=== PATIENT | male | born 1940 | race Caucasian/White ===

== ENCOUNTER 2017-04-01 13:04 | Emergency (ER) | payer OTHER ==
[~2017-04-01 13:04] MED LIST: ALBUTEROL17 G1 IH; AMARYL2 MG PO; Ascorbic Acid,Ester- PO; BEE WITH C1 EACH PO; CARDIZEM CD,CA120 MG PO; CARDIZEM SR120 MG PO; DILAUDID2 MG PO; DUONEB3 ML IH; FEOSOL325 MG PO; FERROUS SULFAT325 MG PO; GLUCOPHAGE500 MG PO; HYDROCHLOROTHIA25 MG PO; LASIX40 MG PO; LEVOTHROID,SY0.05 MG PO; Levothroid,Synthroid PO; METFORMIN HCL500 MG PO; OMEPRAZOLE20 M1 PO; OXYCODONE-APAP1 EAC4 PO; PERCOCET 7.51 TABLET PO; PREDNISONE10 MG PO; Tylenol Regular Stre PO; VITAMIN C500 M5 PO; VYTORIN 10-201 EACH PO; ZESTRIL,PRINIVI10 M1 PO; ZESTRIL,PRINIVI10 MG PO; ZETIA10 MG PO; ZITHROMAX250 MG PO; ZITHROMAX500 MG PO; Zocor PO
[2017-04-01 13:08] VITALS: BP 82/56
[2017-04-01 14:39] LABS: HEMATOCRIT 41.1 % (38.0-50.0); MCH 30.9 PG (29.0-34.0); MCHC 32.8 G/DL (30.0-36.0); MCV 94.1 FL (86-99); MEAN PLAT.VOLUME 10.8 uM^3 (9.0-12.4); PLATELET COUNT 220 K/uL (156-360); RBC DIS.WIDTH-CV 14.4 % (11.8-14.6); RBC DIS.WIDTH-SD 49.7 % (39-53); RED BLOOD COUNT 4.37 M/uL (4.00-5.50); WHITE BLOOD COUNT 14.7 K/uL (4.1-10.2)
[2017-04-01 14:49] LABS: CHLORIDE 110 mEq/L (99-109); POTASSIUM 4.3 mEq/L (3.7-5.4); SODIUM 143 mEq/L (136-147)
[2017-04-01 14:51] LABS: GLUCOSE 78 mg/dL (70-99)
[2017-04-01 14:52] LABS: ANION GAP 12 MEQ/L (2-14)
[2017-04-01 14:55] LABS: GFR ESTIMATE (CALCULATED) 31 mL/min/
[2017-04-01] MEDS ORDERED: BACTRIM,SEPT1 TABLET PO (14:55)
[2017-04-01] MEDS ORDERED: KEFLEX500 MG PO (14:55)
[2017-04-01] MEDS ORDERED: PERCOCET 5/31 TABLET PO (14:55)
[2017-04-01 14:56] LABS: UREA NITROGEN (BUN) 32 mg/dL (9-23)
== END 2017-04-01 15:15 | disposition home or self-care (01) ==
LOC: EME 13:04
PROVIDERS: Physician Assistant
PROC: 0V95XZZ Drainage of Scrotum, External Approach (ICD-10-PCS; principal; 2017-04-01)
DX: N49.2 Inflammatory disorders of scrotum (principal); C14.0 Malignant neoplasm of pharynx, unspecified
CPT/HCPCS: 80048; 83605; 85027; 87040; 87077; 87186; 87801; 99281; 99284

== ENCOUNTER 2017-04-03 15:44 | Emergency (ER) | payer OTHER ==
[~2017-04-03] VITALS: Ht 172.7 cm; Wt 124.0 kg
[~2017-04-03 15:44] MED LIST changes: +BACTRIM,SEPT1 TABLET PO; +KEFLEX500 MG PO; +PERCOCET 5/31 TABLET PO
[2017-04-03 17:24] LABS: BASOPHIL COUNT 0.1 K/uL (0-0.1); EOSINOPHIL (%) 1.1 % (0-5); EOSINOPHIL COUNT 0.1 K/uL (0-0.3); IMMATURE GRANULOCYTE (%) 2.3 % (0.0-0.7); IMMATURE GRANULOCYTE COUNT 0.3 K/uL; INSTRUMENT ABS NEUTROPHIL CT 8.1 K/uL; LYMPHOCYTE COUNT 1.9 K/uL (1.0-2.8); MCH 30.1 PG (29.0-34.0); MCHC 32.2 G/DL (30.0-36.0); MCV 93.4 FL (86-99); MEAN PLAT.VOLUME 10.5 uM^3 (9.0-12.4); MONOCYTE (%) 9.5 % (3-12); MONOCYTE COUNT 1.1 K/uL (0-0.8); NEUTROPHIL (%) 70.4 % (45-76); NEUTROPHIL COUNT 8.1 K/uL (1.8-6.4); PLATELET COUNT 221 K/uL (156-360); RBC DIS.WIDTH-CV 14.4 % (11.8-14.6); RBC DIS.WIDTH-SD 49.1 % (39-53); RED BLOOD COUNT 4.39 M/uL (4.00-5.50); WHITE BLOOD COUNT 11.5 K/uL (4.1-10.2)
[2017-04-03 17:33] LABS: CHLORIDE 108 mEq/L (99-109); SODIUM 140 mEq/L (136-147)
[2017-04-03 17:35] LABS: GLUCOSE 63 mg/dL (70-99)
[2017-04-03 17:36] LABS: ANION GAP 13 MEQ/L (2-14)
[2017-04-03 17:37] LABS: TOTAL BILIRUBIN 0.3 mg/dL (0.0-1.0)
[2017-04-03 17:39] LABS: ALKALINE PHOSPHATASE 57 IU/L (3-129); GFR ESTIMATE (CALCULATED) 31 mL/min/
[2017-04-03 17:40] LABS: UREA NITROGEN (BUN) 29 mg/dL (9-23)
[2017-04-03 18:39] VITALS: BP 132/80
== END 2017-04-03 18:39 | disposition home or self-care (01) ==
LOC: EME 15:44
PROVIDERS: Emergency Medicine
DX: L73.9 Follicular disorder, unspecified (principal); N28.9 Disorder of kidney and ureter, unspecified; E11.9 Type 2 diabetes mellitus without complications; I10 Essential (primary) hypertension; K21.9 Gastro-esophageal reflux disease without esophagitis; J44.9 Chronic obstructive pulmonary disease, unspecified; Z93.0 Tracheostomy status; Z85.819 Personal history of malignant neoplasm of unspecified site of lip, oral cavity, and pharynx; Z79.84 Long term (current) use of oral hypoglycemic drugs; Z87.891 Personal history of nicotine dependence
CPT/HCPCS: 80053; 85025; 87040; 99281; 99283

== ENCOUNTER 2017-09-18 11:33 | Emergency (ER) | payer OTHER ==
[~2017-09-18] VITALS: Ht 180.3 cm; Wt 124.8 kg
[2017-09-18 12:32] LABS: BASOPHIL (%) 0.5 % (0-1); BASOPHIL COUNT 0.1 K/uL (0-0.1); EOSINOPHIL (%) 0.9 % (0-5); EOSINOPHIL COUNT 0.1 K/uL (0-0.3); HEMATOCRIT 39.8 % (38.0-50.0); HEMOGLOBIN 12.9 G/DL (12.5-16.6); IMMATURE GRANULOCYTE (%) 1.1 % (0.0-0.7); LYMPHOCYTE (%) 9.8 % (15-42); LYMPHOCYTE COUNT 1.3 K/uL (1.0-2.8); MCH 31.9 PG (29.0-34.0); MCHC 32.4 G/DL (30.0-36.0); MCV 98.3 FL (86-99); MONOCYTE (%) 9.2 % (3-12); MONOCYTE COUNT 1.2 K/uL (0-0.8); NEUTROPHIL (%) 78.5 % (45-76); NEUTROPHIL COUNT 10.1 K/uL (1.8-6.4); PLATELET COUNT 223 K/uL (156-360); RBC DIS.WIDTH-CV 13.7 % (11.8-14.6); RED BLOOD COUNT 4.05 M/uL (4.00-5.50); WHITE BLOOD COUNT 12.9 K/uL (4.1-10.2)
[2017-09-18 12:38] LABS: CARBON DIOXIDE (BICARBONATE) 26.3 MEQ/L (20-31)
[2017-09-18 12:44] LABS: CHLORIDE 107 mEq/L (99-109); POTASSIUM 4.7 mEq/L (3.7-5.4); SODIUM 140 mEq/L (136-147)
[2017-09-18 12:47] LABS: GLUCOSE 56 mg/dL (70-99); TOTAL PROTEIN 6.8 g/dL (6.4-8.3)
[2017-09-18 12:49] LABS: TOTAL BILIRUBIN 0.6 mg/dL (0.0-1.0)
[2017-09-18 12:50] LABS: ALKALINE PHOSPHATASE 64 IU/L (3-129); CREATININE 2.4 mg/dL (0.6-1.3); GFR ESTIMATE (CALCULATED) 28 mL/min/ (58.99-99999)
[2017-09-18 12:51] LABS: UREA NITROGEN (BUN) 37 mg/dL (9-23)
[2017-09-18 12:52] LABS: AST (GOT) 20 IU/L (2-34)
[2017-09-18 12:53] LABS: ALT (GPT) 28 IU/L (3-49)
[2017-09-18 12:54] LABS: LIPASE 56 U/L (1.0-51.0); TROP-I INTERPRETATION NEGATIVE; TROPONIN-I < 0.01 ng/mL (0.0-0.30)
[2017-09-18 15:58] VITALS: BP 120/86
== END 2017-09-18 15:58 | disposition home or self-care (01) ==
LOC: EME 11:33
PROVIDERS: Emergency Medicine
DX: R05 Cough (principal); Z85.819 Personal history of malignant neoplasm of unspecified site of lip, oral cavity, and pharynx; Z93.0 Tracheostomy status; J44.9 Chronic obstructive pulmonary disease, unspecified; E11.9 Type 2 diabetes mellitus without complications; I50.9 Heart failure, unspecified; I11.0 Hypertensive heart disease with heart failure; Z87.891 Personal history of nicotine dependence; K21.9 Gastro-esophageal reflux disease without esophagitis; Z79.84 Long term (current) use of oral hypoglycemic drugs
CPT/HCPCS: 71045; 80053; 81003; 82803; 83605; 83690; 83880; 84484; 85025; 87502; 93005; 94640

== ENCOUNTER 2017-09-28 11:22 | Inpatient (IN) | payer OTHER ==
[~2017-09-28] VITALS: Ht 172.7 cm; Wt 110.5 kg
[~2017-09-28 11:22] MED LIST changes: -ALBUTEROL17 G1 IH; +AMARYL1 MG PO; +ASCORBIC ACID500 M3 PO; +DUONEB 2.5-0.5 M3 ML AEROSOL; -DUONEB3 ML IH; +LEVOTHYROXINE50 MCG PO; -Levothroid,Synthroid PO; -OMEPRAZOLE20 M1 PO; +OMEPRAZOLE40 M1 PO; +PRAVASTATIN SOD40 MG PO; +PROAIR HFA8.5 GM IH; -VITAMIN C500 M5 PO; -ZESTRIL,PRINIVI10 M1 PO; +ZESTRIL10 MG PO
[2017-09-28 12:09] LABS: BASOPHIL (%) 0.4 % (0-1); BASOPHIL COUNT 0.1 K/uL (0-0.1); EOSINOPHIL (%) 0.1 % (0-5); HEMATOCRIT 43.8 % (38.0-50.0); HEMOGLOBIN 14.4 G/DL (12.5-16.6); IMMATURE GRANULOCYTE (%) 3.3 % (0.0-0.7); LYMPHOCYTE (%) 2.5 % (15-42); LYMPHOCYTE COUNT 0.4 K/uL (1.0-2.8); MCH 31.4 PG (29.0-34.0); MCHC 32.9 G/DL (30.0-36.0); MCV 95.6 FL (86-99); MONOCYTE (%) 3.3 % (3-12); MONOCYTE COUNT 0.5 K/uL (0-0.8); NEUTROPHIL (%) 90.4 % (45-76); NEUTROPHIL COUNT 14.3 K/uL (1.8-6.4); PLATELET COUNT 202 K/uL (156-360); RBC DIS.WIDTH-CV 14.1 % (11.8-14.6); RBC DIS.WIDTH-SD 49.1 % (39-53); RED BLOOD COUNT 4.58 M/uL (4.00-5.50); WHITE BLOOD COUNT 15.9 K/uL (4.1-10.2)
[2017-09-28 12:19] LABS: INTER. NORMALIZED RATIO 1.2
[2017-09-28 12:21] LABS: CHLORIDE 104 mEq/L (99-109); POTASSIUM 5.2 mEq/L (3.7-5.4); PTT 31.7 SEC (25-37); SODIUM 137 mEq/L (136-147)
[2017-09-28 12:26] LABS: CREATININE 5.4 mg/dL (0.6-1.3); GFR ESTIMATE (CALCULATED) 11 mL/min/ (58.99-99999)
[2017-09-28 12:27] LABS: GLUCOSE 41 mg/dL (70-99); UREA NITROGEN (BUN) 98 mg/dL (9-23)
[2017-09-28 12:30] LABS: TROP-I INTERPRETATION NEGATIVE; TROPONIN-I 0.03 ng/mL (0.0-0.30)
[2017-09-28] MEDS ORDERED: K-DUR20 MEQ PO (14:25)
[2017-09-28] MEDS ORDERED: MELOXICAM7.5 MG PO (14:27)
[2017-09-28] MEDS ORDERED: BUDESONIDE0.5 MG/2 M IH (14:27)
[2017-09-28] MEDS ORDERED: ALENDRONATE SOD70 MG PO (14:28)
[2017-09-28 17:55] VITALS: BP 99/57
[2017-09-28 19:00] VITALS: BP 119/68
[2017-09-28 22:18] VITALS: BP 84/52
[2017-09-28 22:26] LABS: CHLORIDE 112 mEq/L (99-109); POTASSIUM 4.4 mEq/L (3.7-5.4); SODIUM 138 mEq/L (136-147)
[2017-09-28 22:27] LABS: ALBUMIN 3.6 g/dL (3.2-4.8)
[2017-09-28 22:28] LABS: CHLORIDE 110 mEq/L (99-109); POTASSIUM 4.5 mEq/L (3.7-5.4); SODIUM 139 mEq/L (136-147)
[2017-09-28 22:32] LABS: CREATININE 5.1 mg/dL (0.6-1.3); GFR ESTIMATE (CALCULATED) 12 mL/min/ (58.99-99999)
[2017-09-28 22:33] LABS: UREA NITROGEN (BUN) 85 mg/dL (9-23)
[2017-09-28 22:35] LABS: LIPASE 137 U/L (1.0-51.0)
[2017-09-28 22:50] VITALS: BP 111/67
[2017-09-28 22:50] LABS: GLUCOSE 39 mg/dL (70-99)
[2017-09-28 23:00] VITALS: BP 96/61
[2017-09-28 23:06] VITALS: BP 112/70
[2017-09-29] VITALS (23 sets, daily range): BP systolic 0–121; BP diastolic 0–80
[2017-09-29 00:19] LABS: MAGNESIUM 2.6 mg/dL (1.3-2.7)
[2017-09-29 00:21] LABS: TOTAL PROTEIN 6.7 g/dL (6.4-8.3)
[2017-09-29 00:23] LABS: TOTAL BILIRUBIN 0.6 mg/dL (0.0-1.0)
[2017-09-29 00:24] LABS: ALKALINE PHOSPHATASE 68 IU/L (3-129); PHOSPHORUS 6.9 mg/dL (2.5-4.9)
[2017-09-29 00:25] LABS: CREATININE 5.1 mg/dL (0.6-1.3); GFR ESTIMATE (CALCULATED) 12 mL/min/ (58.99-99999)
[2017-09-29 00:26] LABS: AST (GOT) 26 IU/L (2-34); UREA NITROGEN (BUN) 90 mg/dL (9-23)
[2017-09-29 00:28] LABS: ALT (GPT) 38 IU/L (3-49); CREATINE KINASE 735 IU/L (1-294)
[2017-09-29 00:36] LABS: GLUCOSE 42 mg/dL (70-99)
[2017-09-29 01:14] LABS: SERUM ETHYL ALCOHOL < 10 mg/dL
[2017-09-29 01:46] LABS: TROP-I INTERPRETATION NEGATIVE; TROPONIN-I 0.09 ng/mL (0.0-0.30)
[2017-09-29 04:25] LABS: BASE EXCESS -9.6 mEq/L (-3 to +3); BICARBONATE 16.5 mEq/L (22-26); CARBOXY HGB 1.4 % (0-5); METHEMOGLOBIN 1.6 % (0-1.5); PCO2 36 mm Hg (35-45); PO2 97 mm Hg (80-100)
[2017-09-29 04:26] LABS: TOTAL RESP RATE 31 resp/min; pH 7.27 (7.35-7.45)
[2017-09-29 04:27] LABS: DEVICE TM; FI02 40 %; SITE A-LINE
[2017-09-29 04:45] LABS: UR CREATININE CONCENTRATION 175.1 MG/DL
[2017-09-29 05:53] LABS: BASOPHIL (%) 0.5 % (0-1); BASOPHIL COUNT 0.1 K/uL (0-0.1); EOSINOPHIL (%) 1.5 % (0-5); EOSINOPHIL COUNT 0.2 K/uL (0-0.3); HEMATOCRIT 35.5 % (38.0-50.0); IMMATURE GRANULOCYTE (%) 2.9 % (0.0-0.7); LYMPHOCYTE COUNT 0.8 K/uL (1.0-2.8); MCH 31.7 PG (29.0-34.0); MCHC 32.1 G/DL (30.0-36.0); MCV 98.6 FL (86-99); MONOCYTE (%) 9.5 % (3-12); MONOCYTE COUNT 1.2 K/uL (0-0.8); NEUTROPHIL (%) 79.6 % (45-76); NEUTROPHIL COUNT 10.3 K/uL (1.8-6.4); PLATELET COUNT 165 K/uL (156-360); RBC DIS.WIDTH-CV 14.3 % (11.8-14.6); RBC DIS.WIDTH-SD 51.8 % (39-53); WHITE BLOOD COUNT 12.9 K/uL (4.1-10.2)
[2017-09-29 05:53] LABS: INTER. NORMALIZED RATIO 1.1
[2017-09-29 05:55] LABS: PTT 28.5 SEC (25-37)
[2017-09-29 05:57] LABS: HEMOGLOBIN 11.4 G/DL (12.5-16.6)
[2017-09-29 06:05] LABS: TROP-I INTERPRETATION NEGATIVE; TROPONIN-I 0.04 ng/mL (0.0-0.30)
[2017-09-29 06:39] LABS: BILIRUBIN NEGATIVE; BLOOD NEGATIVE; COLOR YELLOW ((YELLOW)); GLUCOSE (STRIP) NEGATIVE; KETONES NEGATIVE; LEUKOCYTES NEGATIVE; NITRITE NEGATIVE; PROTEIN (STRIP) NEGATIVE; SPECIFIC GRAVITY 1.012 (1.000-1.030); UROBILINOGEN 0.2 MG/DL (0.2-1.0)
[2017-09-29 06:40] LABS: APPEARANCE CLEAR ((CLEAR)); UCUL ADDED? NO
[2017-09-29 08:07] LABS: ALBUMIN 3.1 G/DL (3.2-4.8); ALKALINE PHOSPHATASE 53 IU/L (3-129); ALT (GPT) 30 IU/L (3-49); AST (GOT) 27 IU/L (2-34); CHLORIDE 109 MEQ/L (99-109); GFR ESTIMATE (CALCULATED) 12 mL/min/ (58.99-99999); POTASSIUM 4.4 MEQ/L (3.7-5.4); SODIUM 139 MEQ/L (136-147); TOTAL BILIRUBIN 0.7 MG/DL (0.0-1.0); TOTAL PROTEIN 5.7 G/DL (6.4-8.3); UREA NITROGEN (BUN) 83 mg/dL (9-23)
[2017-09-29 08:09] LABS: GLUCOSE 37 mg/dL (70-99)
[2017-09-29 08:18] LABS: AMYLASE 57 IU/L (1-118); LIPASE 123 U/L (1.0-51.0)
[2017-09-29 08:54] LABS: THYROTROPIN (TSH) 2.1 MIU/L (0.4-5.5)
[2017-09-29 08:56] LABS: MAGNESIUM 2.3 mg/dl (1.3-2.7); PHOSPHORUS 6.3 mg/dL (2.5-4.9)
[2017-09-29] MEDS ORDERED: METFORMIN HCL500 MG PO (10:04)
[2017-09-29] MEDS ORDERED: GLIMEPIRIDE1 MG PO (10:04)
[2017-09-29] MEDS ORDERED: LASIX40 MG PO (10:07)
[2017-09-29] MEDS ORDERED: ZESTRIL10 MG PO (10:08)
[2017-09-29] MEDS ORDERED: POTASSIUM CHLO20 ME1 PO (10:08)
[2017-09-29] MEDS ORDERED: MELOXICAM7.5 MG PO (10:09)
[2017-09-29 16:56] LABS: CHLORIDE 110 MEQ/L (99-109); GFR ESTIMATE (CALCULATED) 15 mL/min/ (58.99-99999); POTASSIUM 4.2 MEQ/L (3.7-5.4); SODIUM 140 MEQ/L (136-147); UREA NITROGEN (BUN) 75 mg/dL (9-23)
[2017-09-29 17:02] LABS: CREATININE 4.1 MG/DL (0.6-1.3); GLUCOSE 87 mg/dL (70-99)
[2017-09-30] VITALS (9 sets, daily range): BP systolic 80–116; BP diastolic 63–77
[2017-09-30 05:21] LABS: BASOPHIL COUNT 0.1 K/uL (0-0.1); EOSINOPHIL (%) 2.7 % (0-5); EOSINOPHIL COUNT 0.3 K/uL (0-0.3); HEMATOCRIT 34.9 % (38.0-50.0); HEMOGLOBIN 11.2 G/DL (12.5-16.6); IMMATURE GRANULOCYTE (%) 3.2 % (0.0-0.7); LYMPHOCYTE (%) 9.1 % (15-42); LYMPHOCYTE COUNT 1.1 K/uL (1.0-2.8); MCH 30.6 PG (29.0-34.0); MCHC 32.1 G/DL (30.0-36.0); MCV 95.4 FL (86-99); MONOCYTE (%) 15.2 % (3-12); MONOCYTE COUNT 1.9 K/uL (0-0.8); NEUTROPHIL (%) 68.8 % (45-76); NEUTROPHIL COUNT 8.6 K/uL (1.8-6.4); PLATELET COUNT 175 K/uL (156-360); RBC DIS.WIDTH-CV 14.2 % (11.8-14.6); RBC DIS.WIDTH-SD 49.7 % (39-53); RED BLOOD COUNT 3.66 M/uL (4.00-5.50); WHITE BLOOD COUNT 12.5 K/uL (4.1-10.2)
[2017-09-30 08:07] LABS: ALBUMIN 2.7 G/DL (3.2-4.8); ALKALINE PHOSPHATASE 54 IU/L (3-129); ALT (GPT) 25 IU/L (3-49); AST (GOT) 22 IU/L (2-34); CHLORIDE 105 MEQ/L (99-109); CREATINE KINASE 990 IU/L (1-294); CREATININE 3.7 MG/DL (0.6-1.3); GFR ESTIMATE (CALCULATED) 17 mL/min/ (58.99-99999); GLUCOSE 232 mg/dL (70-99); MAGNESIUM 1.9 mg/dl (1.3-2.7); POTASSIUM 4.2 MEQ/L (3.7-5.4); SODIUM 141 MEQ/L (136-147); TOTAL BILIRUBIN 0.8 MG/DL (0.0-1.0); TOTAL PROTEIN 4.9 G/DL (6.4-8.3); UREA NITROGEN (BUN) 58 mg/dL (9-23)
[2017-10-01] VITALS (14 sets, daily range): BP systolic 90–141; BP diastolic 57–73
[2017-10-01 05:27] LABS: BASOPHIL (%) 0.7 % (0-1); BASOPHIL COUNT 0.1 K/uL (0-0.1); EOSINOPHIL (%) 2.3 % (0-5); EOSINOPHIL COUNT 0.3 K/uL (0-0.3); HEMATOCRIT 32.3 % (38.0-50.0); HEMOGLOBIN 10.3 G/DL (12.5-16.6); IMMATURE GRANULOCYTE (%) 2.6 % (0.0-0.7); LYMPHOCYTE (%) 7.2 % (15-42); LYMPHOCYTE COUNT 0.8 K/uL (1.0-2.8); MCH 31.1 PG (29.0-34.0); MCHC 31.9 G/DL (30.0-36.0); MCV 97.6 FL (86-99); MONOCYTE (%) 12.8 % (3-12); MONOCYTE COUNT 1.5 K/uL (0-0.8); NEUTROPHIL (%) 74.4 % (45-76); NEUTROPHIL COUNT 8.4 K/uL (1.8-6.4); PLATELET COUNT 146 K/uL (156-360); RBC DIS.WIDTH-CV 14.5 % (11.8-14.6); RBC DIS.WIDTH-SD 51.5 % (39-53); RED BLOOD COUNT 3.31 M/uL (4.00-5.50); WHITE BLOOD COUNT 11.3 K/uL (4.1-10.2)
[2017-10-01 05:55] LABS: ALBUMIN 2.4 G/DL (3.2-4.8); ALKALINE PHOSPHATASE 50 IU/L (3-129); ALT (GPT) 21 IU/L (3-49); AST (GOT) 16 IU/L (2-34); CHLORIDE 110 MEQ/L (99-109); CREATININE 2.5 MG/DL (0.6-1.3); GFR ESTIMATE (CALCULATED) 27 mL/min/ (58.99-99999); GLUCOSE 138 mg/dL (70-99); MAGNESIUM 1.9 mg/dl (1.3-2.7); PHOSPHORUS 2.9 mg/dL (2.5-4.9); POTASSIUM 4.3 MEQ/L (3.7-5.4); SODIUM 144 MEQ/L (136-147); TOTAL BILIRUBIN 0.5 MG/DL (0.0-1.0); TOTAL PROTEIN 4.5 G/DL (6.4-8.3); UREA NITROGEN (BUN) 38 mg/dL (9-23)
[2017-10-02] VITALS (24 sets, daily range): BP systolic 75–126; BP diastolic 47–89
[2017-10-02 06:08] LABS: CHLORIDE 111 MEQ/L (99-109); GFR ESTIMATE (CALCULATED) 35 mL/min/ (58.99-99999); POTASSIUM 4.1 MEQ/L (3.7-5.4); SODIUM 147 MEQ/L (136-147); UREA NITROGEN (BUN) 29 mg/dL (9-23)
[2017-10-02 06:13] LABS: GLUCOSE 95 mg/dL (70-99)
[2017-10-03] VITALS (22 sets, daily range): BP systolic 89–145; BP diastolic 56–98
[2017-10-03 04:43] LABS: BASOPHIL (%) 0.6 % (0-1); BASOPHIL COUNT 0.1 K/uL (0-0.1); EOSINOPHIL (%) 4.7 % (0-5); EOSINOPHIL COUNT 0.4 K/uL (0-0.3); HEMATOCRIT 33.6 % (38.0-50.0); HEMOGLOBIN 10.5 G/DL (12.5-16.6); IMMATURE GRANULOCYTE (%) 1.9 % (0.0-0.7); LYMPHOCYTE (%) 8.3 % (15-42); LYMPHOCYTE COUNT 0.7 K/uL (1.0-2.8); MCHC 31.3 G/DL (30.0-36.0); MCV 99.1 FL (86-99); MONOCYTE (%) 10.1 % (3-12); MONOCYTE COUNT 0.9 K/uL (0-0.8); NEUTROPHIL (%) 74.4 % (45-76); NEUTROPHIL COUNT 6.5 K/uL (1.8-6.4); PLATELET COUNT 155 K/uL (156-360); RBC DIS.WIDTH-CV 14.4 % (11.8-14.6); RBC DIS.WIDTH-SD 51.7 % (39-53); RED BLOOD COUNT 3.39 M/uL (4.00-5.50); WHITE BLOOD COUNT 8.8 K/uL (4.1-10.2)
[2017-10-03 04:46] LABS: CHLORIDE 114 mEq/L (99-109); POTASSIUM 4.5 mEq/L (3.7-5.4); SODIUM 149 mEq/L (136-147)
[2017-10-03 04:47] LABS: GLUCOSE 85 mg/dL (70-99)
[2017-10-03 04:51] LABS: GFR ESTIMATE (CALCULATED) 35 mL/min/ (58.99-99999)
[2017-10-03 04:52] LABS: UREA NITROGEN (BUN) 30 mg/dL (9-23)
[2017-10-04] VITALS (18 sets, daily range): BP systolic 91–155; BP diastolic 65–90
[2017-10-04 05:16] LABS: BASOPHIL (%) 0.6 % (0-1); BASOPHIL COUNT 0.1 K/uL (0-0.1); EOSINOPHIL (%) 1.3 % (0-5); EOSINOPHIL COUNT 0.1 K/uL (0-0.3); HEMATOCRIT 33.6 % (38.0-50.0); HEMOGLOBIN 10.8 G/DL (12.5-16.6); IMMATURE GRANULOCYTE (%) 2.3 % (0.0-0.7); LYMPHOCYTE (%) 6.9 % (15-42); LYMPHOCYTE COUNT 0.6 K/uL (1.0-2.8); MCH 31.5 PG (29.0-34.0); MCHC 32.1 G/DL (30.0-36.0); MONOCYTE (%) 11.7 % (3-12); MONOCYTE COUNT 0.9 K/uL (0-0.8); NEUTROPHIL (%) 77.2 % (45-76); NEUTROPHIL COUNT 6.1 K/uL (1.8-6.4); NRBC (%) 0.3 /100 WBC (0-0); RBC DIS.WIDTH-CV 14.3 % (11.8-14.6); RBC DIS.WIDTH-SD 50.6 % (39-53); RED BLOOD COUNT 3.43 M/uL (4.00-5.50); WHITE BLOOD COUNT 7.9 K/uL (4.1-10.2)
[2017-10-04 05:25] LABS: PLATELET COUNT 206 K/uL (156-360)
[2017-10-04 05:42] LABS: CHLORIDE 110 MEQ/L (99-109); CREATININE 1.8 MG/DL (0.6-1.3); GFR ESTIMATE (CALCULATED) 39 mL/min/ (58.99-99999); GLUCOSE 92 mg/dL (70-99); PHOSPHORUS 2.7 mg/dL (2.5-4.9); POTASSIUM 4.3 MEQ/L (3.7-5.4); SODIUM 148 MEQ/L (136-147); UREA NITROGEN (BUN) 31 mg/dL (9-23)
[2017-10-05] VITALS (7 sets, daily range): BP systolic 101–147; BP diastolic 65–80
[2017-10-05 05:40] LABS: BASOPHIL (%) 0.6 % (0-1); BASOPHIL COUNT 0.1 K/uL (0-0.1); EOSINOPHIL (%) 2.7 % (0-5); EOSINOPHIL COUNT 0.2 K/uL (0-0.3); HEMATOCRIT 33.3 % (38.0-50.0); HEMOGLOBIN 10.7 G/DL (12.5-16.6); IMMATURE GRANULOCYTE (%) 2.3 % (0.0-0.7); LYMPHOCYTE (%) 13.2 % (15-42); LYMPHOCYTE COUNT 1.1 K/uL (1.0-2.8); MCH 31.3 PG (29.0-34.0); MCHC 32.1 G/DL (30.0-36.0); MCV 97.4 FL (86-99); MONOCYTE (%) 11.2 % (3-12); PLATELET COUNT 177 K/uL (156-360); RBC DIS.WIDTH-CV 14.1 % (11.8-14.6); RBC DIS.WIDTH-SD 49.9 % (39-53); RED BLOOD COUNT 3.42 M/uL (4.00-5.50); WHITE BLOOD COUNT 8.6 K/uL (4.1-10.2)
[2017-10-05 06:05] LABS: CHLORIDE 107 MEQ/L (99-109); CREATININE 1.7 MG/DL (0.6-1.3); GFR ESTIMATE (CALCULATED) 42 mL/min/ (58.99-99999); GLUCOSE 95 mg/dL (70-99); POTASSIUM 3.8 MEQ/L (3.7-5.4); SODIUM 143 MEQ/L (136-147); UREA NITROGEN (BUN) 29 mg/dL (9-23)
[2017-10-05 06:32] LABS: DIGOXIN 0.5 ng/mL (0.8-2.0)
[2017-10-06 04:00] VITALS: BP 134/75
[2017-10-06 06:57] LABS: BASOPHIL (%) 0.6 % (0-1); BASOPHIL COUNT 0.1 K/uL (0-0.1); EOSINOPHIL (%) 2.7 % (0-5); EOSINOPHIL COUNT 0.2 K/uL (0-0.3); HEMATOCRIT 31.7 % (38.0-50.0); IMMATURE GRANULOCYTE (%) 2.3 % (0.0-0.7); LYMPHOCYTE (%) 14.5 % (15-42); LYMPHOCYTE COUNT 1.3 K/uL (1.0-2.8); MCH 30.6 PG (29.0-34.0); MCHC 31.5 G/DL (30.0-36.0); MCV 96.9 FL (86-99); MONOCYTE (%) 11.9 % (3-12); MONOCYTE COUNT 1.1 K/uL (0-0.8); PLATELET COUNT 196 K/uL (156-360); RBC DIS.WIDTH-CV 14.1 % (11.8-14.6); RBC DIS.WIDTH-SD 49.8 % (39-53); RED BLOOD COUNT 3.27 M/uL (4.00-5.50); WHITE BLOOD COUNT 8.8 K/uL (4.1-10.2)
[2017-10-06 07:16] LABS: CHLORIDE 108 MEQ/L (99-109); CREATININE 1.6 MG/DL (0.6-1.3); GFR ESTIMATE (CALCULATED) 45 mL/min/ (58.99-99999); GLUCOSE 98 mg/dL (70-99); POTASSIUM 3.8 MEQ/L (3.7-5.4); SODIUM 146 MEQ/L (136-147); UREA NITROGEN (BUN) 30 mg/dL (9-23)
[2017-10-06 07:41] VITALS: BP 111/61
[2017-10-06 11:24] VITALS: BP 103/64
[2017-10-06 16:17] VITALS: BP 135/74
[2017-10-06 20:00] VITALS: BP 130/70
[2017-10-06 23:55] VITALS: BP 109/61
[2017-10-07 03:44] VITALS: BP 101/51
[2017-10-07 05:34] LABS: BASOPHIL (%) 0.5 % (0-1); BASOPHIL COUNT 0.1 K/uL (0-0.1); EOSINOPHIL COUNT 0.3 K/uL (0-0.3); HEMATOCRIT 32.3 % (38.0-50.0); HEMOGLOBIN 10.2 G/DL (12.5-16.6); IMMATURE GRANULOCYTE (%) 2.3 % (0.0-0.7); LYMPHOCYTE (%) 16.7 % (15-42); LYMPHOCYTE COUNT 1.5 K/uL (1.0-2.8); MCH 30.8 PG (29.0-34.0); MCHC 31.6 G/DL (30.0-36.0); MCV 97.6 FL (86-99); MONOCYTE (%) 11.2 % (3-12); NEUTROPHIL (%) 66.3 % (45-76); NEUTROPHIL COUNT 6.1 K/uL (1.8-6.4); PLATELET COUNT 219 K/uL (156-360); RBC DIS.WIDTH-CV 14.2 % (11.8-14.6); RBC DIS.WIDTH-SD 50.3 % (39-53); RED BLOOD COUNT 3.31 M/uL (4.00-5.50); WHITE BLOOD COUNT 9.2 K/uL (4.1-10.2)
[2017-10-07 06:19] LABS: CHLORIDE 105 MEQ/L (99-109); CREATININE 1.7 MG/DL (0.6-1.3); GFR ESTIMATE (CALCULATED) 42 mL/min/ (58.99-99999); GLUCOSE 109 mg/dL (70-99); POTASSIUM 3.5 MEQ/L (3.7-5.4); SODIUM 142 MEQ/L (136-147); UREA NITROGEN (BUN) 28 mg/dL (9-23)
[2017-10-07 08:15] VITALS: BP 100/598
[2017-10-07 11:45] VITALS: BP 129/64
[2017-10-07 15:30] VITALS: BP 148/71
[2017-10-08] VITALS (7 sets, daily range): BP systolic 105–131; BP diastolic 57–85
[2017-10-09 03:29] VITALS: BP 145/77
[2017-10-09 05:42] LABS: BASOPHIL (%) 0.7 % (0-1); BASOPHIL COUNT 0.1 K/uL (0-0.1); EOSINOPHIL (%) 4.1 % (0-5); EOSINOPHIL COUNT 0.4 K/uL (0-0.3); HEMOGLOBIN 10.4 G/DL (12.5-16.6); IMMATURE GRANULOCYTE (%) 2.4 % (0.0-0.7); LYMPHOCYTE (%) 17.6 % (15-42); LYMPHOCYTE COUNT 1.8 K/uL (1.0-2.8); MCH 30.5 PG (29.0-34.0); MCHC 31.5 G/DL (30.0-36.0); MCV 96.8 FL (86-99); MONOCYTE (%) 11.2 % (3-12); MONOCYTE COUNT 1.1 K/uL (0-0.8); NEUTROPHIL COUNT 6.5 K/uL (1.8-6.4); PLATELET COUNT 283 K/uL (156-360); RBC DIS.WIDTH-CV 14.5 % (11.8-14.6); RBC DIS.WIDTH-SD 50.3 % (39-53); RED BLOOD COUNT 3.41 M/uL (4.00-5.50); WHITE BLOOD COUNT 10.2 K/uL (4.1-10.2)
[2017-10-09 06:09] LABS: CHLORIDE 104 MEQ/L (99-109); POTASSIUM 4.1 MEQ/L (3.7-5.4); SODIUM 144 MEQ/L (136-147)
[2017-10-09 06:14] LABS: CREATININE 1.7 MG/DL (0.6-1.3); GFR ESTIMATE (CALCULATED) 42 mL/min/ (58.99-99999); GLUCOSE 98 mg/dL (70-99); UREA NITROGEN (BUN) 31 mg/dL (9-23)
[2017-10-09 07:14] VITALS: BP 113/73
[2017-10-09 11:33] VITALS: BP 105/60
[2017-10-09 15:04] VITALS: BP 106/61
[2017-10-09 20:00] VITALS: BP 120/74
[2017-10-09 23:26] VITALS: BP 125/68
[2017-10-10 03:50] VITALS: BP 128/88
[2017-10-10 05:38] LABS: BASOPHIL (%) 0.6 % (0-1); BASOPHIL COUNT 0.1 K/uL (0-0.1); EOSINOPHIL (%) 4.9 % (0-5); EOSINOPHIL COUNT 0.5 K/uL (0-0.3); HEMATOCRIT 33.3 % (38.0-50.0); HEMOGLOBIN 10.3 G/DL (12.5-16.6); IMMATURE GRANULOCYTE (%) 1.9 % (0.0-0.7); LYMPHOCYTE (%) 15.8 % (15-42); LYMPHOCYTE COUNT 1.7 K/uL (1.0-2.8); MCH 30.3 PG (29.0-34.0); MCHC 30.9 G/DL (30.0-36.0); MCV 97.9 FL (86-99); MONOCYTE COUNT 1.2 K/uL (0-0.8); NEUTROPHIL (%) 65.8 % (45-76); NEUTROPHIL COUNT 7.1 K/uL (1.8-6.4); PLATELET COUNT 301 K/uL (156-360); RBC DIS.WIDTH-CV 14.5 % (11.8-14.6); RBC DIS.WIDTH-SD 51.2 % (39-53); WHITE BLOOD COUNT 10.8 K/uL (4.1-10.2)
[2017-10-10 06:01] LABS: CHLORIDE 102 MEQ/L (99-109); CREATININE 1.6 MG/DL (0.6-1.3); GFR ESTIMATE (CALCULATED) 45 mL/min/ (58.99-99999); GLUCOSE 108 mg/dL (70-99); POTASSIUM 4.3 MEQ/L (3.7-5.4); SODIUM 140 MEQ/L (136-147); UREA NITROGEN (BUN) 33 mg/dL (9-23)
[2017-10-10 07:24] VITALS: BP 109/56
[2017-10-10 11:57] VITALS: BP 93/77
[2017-10-10 15:00] VITALS: BP 125/86
[2017-10-10 19:10] VITALS: BP 130/68
[2017-10-10 23:14] VITALS: BP 98/65
[2017-10-11 03:00] VITALS: BP 121/76
[2017-10-11 07:28] VITALS: BP 128/81
[2017-10-11 11:14] VITALS: BP 128/64
[2017-10-11 15:21] VITALS: BP 123/73
[2017-10-11] MEDS ORDERED: HEPARIN SO5000 UNIT4 SC (16:16)
[2017-10-11] MEDS ORDERED: TAMSULOSIN HCL0.4 MG PO (16:16)
[2017-10-11] MEDS ORDERED: DIGOXIN250 MCG PO (16:17)
[2017-10-11] MEDS ORDERED: DOCUSATE SODIU100 MG PO (16:18)
[2017-10-11] MEDS ORDERED: BISAC-EVAC10 MG PR (16:18)
[2017-10-11] MEDS ORDERED: LASIX40 MG PO (16:18)
[2017-10-11] MEDS ORDERED: NOVOLOG 10100 UNITS/ SC (16:19)
[2017-10-11] MEDS ORDERED: SENNA LAX8.6 MG PO (16:19)
[2017-10-11] MEDS ORDERED: POLYETHYLENE GL17 GM PO (16:19)
[2017-10-11] MEDS ORDERED: GLUCAGEN1 MG/1 ML IM/SC (16:21)
[2017-10-11 20:12] VITALS: BP 117/63
== END 2017-10-11 23:10 | DRG 853 ==
LOC: EME 11:22 → ENRESERV 13:01 → CANRESERV 13:43 → 4EAST 14:49 → EDOF 14:49 → 4WEST 14:49 → ENRESERV 14:50 → 4EAST 17:44 → ENRESERV 22:22 → 4WEST 22:43 → ENRESERV 10-04 13:39 → 4EAST 10-04 17:24 → ENPENDDIS 10-11 19:00 → 4EAST 10-11 23:10
PROVIDERS: Emergency Medicine; Family Medicine; Family Medicine Sports Medicine; Internal Medicine Critical Care Medicine; Internal Medicine Nephrology; Obstetrics & Gynecology; Surgery
PROC: 0B9M8ZZ Drainage of Bilateral Lungs, Via Natural or Artificial Opening Endoscopic (ICD-10-PCS; principal; 2017-09-28)
DX: A41.9 Sepsis, unspecified organism (principal); N17.0 Acute kidney failure with tubular necrosis; R65.20 Severe sepsis without septic shock; J15.6 Pneumonia due to other Gram-negative bacteria; E11.649 Type 2 diabetes mellitus with hypoglycemia without coma; E86.0 Dehydration; I95.9 Hypotension, unspecified; I10 Essential (primary) hypertension; E03.9 Hypothyroidism, unspecified; R65.21 Severe sepsis with septic shock; E78.5 Hyperlipidemia, unspecified; J69.0 Pneumonitis due to inhalation of food and vomit; M48.54XA Collapsed vertebra, not elsewhere classified, thoracic region, initial encounter for fracture; G89.29 Other chronic pain; M48.04 Spinal stenosis, thoracic region; J96.90 Respiratory failure, unspecified, unspecified whether with hypoxia or hypercapnia; M54.9 Dorsalgia, unspecified; I13.0 Hypertensive heart and chronic kidney disease with heart failure and stage 1 through stage 4 chronic kidney disease, or unspecified chronic kidney disease; K21.9 Gastro-esophageal reflux disease without esophagitis; E87.6 Hypokalemia; J44.0 Chronic obstructive pulmonary disease with (acute) lower respiratory infection; E11.22 Type 2 diabetes mellitus with diabetic chronic kidney disease; I48.91 Unspecified atrial fibrillation; M46.20 Osteomyelitis of vertebra, site unspecified; I25.10 Atherosclerotic heart disease of native coronary artery without angina pectoris; E87.0 Hyperosmolality and hypernatremia; N18.3 Chronic kidney disease, stage 3 (moderate); D63.8 Anemia in other chronic diseases classified elsewhere; I50.9 Heart failure, unspecified; E66.01 Morbid (severe) obesity due to excess calories; E87.2 Acidosis; J20.9 Acute bronchitis, unspecified; J44.1 Chronic obstructive pulmonary disease with (acute) exacerbation; F41.9 Anxiety disorder, unspecified; G47.33 Obstructive sleep apnea (adult) (pediatric); Z87.891 Personal history of nicotine dependence; Z87.01 Personal history of pneumonia (recurrent); Z85.21 Personal history of malignant neoplasm of larynx; Z93.0 Tracheostomy status; Z68.41 Body mass index [BMI] 40.0-44.9, adult; Z79.84 Long term (current) use of oral hypoglycemic drugs; Z79.899 Other long term (current) drug therapy; W18.30XA Fall on same level, unspecified, initial encounter; R33.9 Retention of urine, unspecified
CPT/HCPCS: 31720; 36600; 36620; 70490; 71045; 71046; 71250; 72141; 72146; 74018; 74176; 74230; 76770; 80048; 80048 91; 80053; 80069; 80162; 80202; 81003; 82150; 82330; 82436; 82533 91; 82550; 82550 91; 82570; 82803; 82948; 83605; 83690; 83735; 83880; 84100; 84133; 84156; 84300; 84443; 84484; 85025; 85027; 85610; 85730; 87040; 87070; 87077; 87086; 87186; 87205; 87502; 87641; 87801; 89190; 92610 GN; 92611 GN; 93005; 93306; 93970; 94640; 94640 76; 94644; 94760; 94799; 97530 GP; 99202; 99281; 99285; C1751; G0480; J0456; J1160; J1644; J1815; J1940; J2185; J2270; J2543; J3010; J3370; J7030; J7040; J7050; J7512; S0028

== ENCOUNTER 2017-11-08 14:56 | Inpatient (IN) | payer OTHER ==
[~2017-11-08] VITALS: Ht 172.7 cm; Wt 105.6 kg
[~2017-11-08 14:56] MED LIST changes: +ALENDRONATE SOD70 MG PO; +BISAC-EVAC10 MG PR; +BUDESONIDE0.5 MG/2 M IH; +DIGOXIN250 MCG PO; +DOCUSATE SODIU100 MG PO; +GLIMEPIRIDE1 MG PO; +GLUCAGEN1 MG/1 ML IM/SC; +HEPARIN SO5000 UNIT4 SC; +K-DUR20 MEQ PO; +MELOXICAM7.5 MG PO; +NOVOLOG 10100 UNITS/ SC; -OMEPRAZOLE40 M1 PO; +POLYETHYLENE GL17 GM PO; +POTASSIUM CHLO20 ME1 PO; +PRILOSEC20 MG PO; +SENNA LAX8.6 MG PO; +TAMSULOSIN HCL0.4 MG PO
[2017-11-08 16:35] LABS: BASOPHIL (%) 0.5 % (0-1); BASOPHIL COUNT 0.1 K/uL (0-0.1); EOSINOPHIL COUNT 0.2 K/uL (0-0.3); HEMATOCRIT 41.8 % (38.0-50.0); IMMATURE GRANULOCYTE (%) 2.6 % (0.0-0.7); LYMPHOCYTE (%) 8.2 % (15-42); MCH 31.4 PG (29.0-34.0); MCHC 32.8 G/DL (30.0-36.0); MCV 95.7 FL (86-99); MONOCYTE (%) 8.1 % (3-12); MONOCYTE COUNT 0.9 K/uL (0-0.8); NEUTROPHIL (%) 78.6 % (45-76); NEUTROPHIL COUNT 9.1 K/uL (1.8-6.4); PLATELET COUNT 243 K/uL (156-360); RBC DIS.WIDTH-CV 15.1 % (11.8-14.6); RBC DIS.WIDTH-SD 53.3 % (39-53); WHITE BLOOD COUNT 11.6 K/uL (4.1-10.2)
[2017-11-08 16:36] LABS: HEMOGLOBIN 13.7 G/DL (12.5-16.6); RED BLOOD COUNT 4.37 M/uL (4.00-5.50)
[2017-11-08 16:44] LABS: ALBUMIN 3.7 g/dL (3.2-4.8); CHLORIDE 99 mEq/L (99-109); POTASSIUM 3.7 mEq/L (3.7-5.4); SODIUM 138 mEq/L (136-147)
[2017-11-08 16:46] LABS: GLUCOSE 89 mg/dL (70-99)
[2017-11-08 16:47] LABS: TOTAL PROTEIN 7.4 g/dL (6.4-8.3)
[2017-11-08 16:50] LABS: ALKALINE PHOSPHATASE 155 IU/L (3-129); GFR ESTIMATE (CALCULATED) 35 mL/min/ (58.99-99999)
[2017-11-08 16:51] LABS: UREA NITROGEN (BUN) 31 mg/dL (9-23)
[2017-11-08 16:52] LABS: AST (GOT) 21 IU/L (2-34)
[2017-11-08 16:53] LABS: ALT (GPT) 42 IU/L (3-49)
[2017-11-08 16:54] LABS: TROP-I INTERPRETATION NEGATIVE; TROPONIN-I 0.04 ng/mL (0.0-0.30)
[2017-11-08 18:02] LABS: APPEARANCE CLEAR ((CLEAR)); BILIRUBIN NEGATIVE; BLOOD NEGATIVE; COLOR AMBER ((YELLOW)); GLUCOSE (STRIP) NEGATIVE; KETONES 5; LEUKOCYTES NEGATIVE; NITRITE NEGATIVE; PROTEIN (STRIP) NEGATIVE; SPECIFIC GRAVITY 1.019 (1.000-1.030); UCUL ADDED? NO
[2017-11-08] MEDS ORDERED: PROAIR HFA8.5 GM IH (20:07)
[2017-11-08] MEDS ORDERED: ZESTRIL5 MG PO (20:13)
[2017-11-08] MEDS ORDERED: METFORMIN HCL500 MG PO (20:15)
[2017-11-08] MEDS ORDERED: AMARYL1 MG PO (20:17)
[2017-11-08] MEDS ORDERED: FLOMAX0.4 MG PO (20:20)
[2017-11-08] MEDS ORDERED: DIGOXIN125 MCG PO (20:22)
[2017-11-08] MEDS ORDERED: K-DUR20 MEQ PO (20:24)
[2017-11-08] MEDS ORDERED: FUROSEMIDE40 MG PO (20:25)
[2017-11-08] MEDS ORDERED: SANTYL30 GM TP (20:26)
[2017-11-08] MEDS ORDERED: LACTULOSE10 GM/151 PO (20:26)
[2017-11-08] MEDS ORDERED: MELOXICAM7.5 MG PO (20:27)
[2017-11-08] MEDS ORDERED: LORCET 5-325 M1 EACH PO (20:28)
[2017-11-08] MEDS ORDERED: SENNA8.6 MG PO (21:00)
[2017-11-08 21:25] VITALS: BP 110/57
[2017-11-09 03:39] VITALS: BP 110/56
[2017-11-09 06:04] LABS: HEMATOCRIT 37.9 % (38.0-50.0); HEMOGLOBIN 12.3 G/DL (12.5-16.6); MCH 31.1 PG (29.0-34.0); MCHC 32.5 G/DL (30.0-36.0); MCV 95.9 FL (86-99); PLATELET COUNT 211 K/uL (156-360); RBC DIS.WIDTH-CV 15.2 % (11.8-14.6); RBC DIS.WIDTH-SD 53.5 % (39-53); RED BLOOD COUNT 3.95 M/uL (4.00-5.50); WHITE BLOOD COUNT 9.8 K/uL (4.1-10.2)
[2017-11-09 06:31] LABS: CHLORIDE 102 MEQ/L (99-109); CREATININE 1.8 MG/DL (0.6-1.3); GFR ESTIMATE (CALCULATED) 39 mL/min/ (58.99-99999); GLUCOSE 83 mg/dL (70-99); POTASSIUM 3.8 MEQ/L (3.7-5.4); SODIUM 140 MEQ/L (136-147); UREA NITROGEN (BUN) 31 mg/dL (9-23)
[2017-11-09 07:45] VITALS: BP 130/56
[2017-11-09 16:13] VITALS: BP 124/64
[2017-11-09 23:39] VITALS: BP 119/57
[2017-11-10 06:18] LABS: HEMATOCRIT 35.3 % (38.0-50.0); MCH 30.6 PG (29.0-34.0); MCHC 31.2 G/DL (30.0-36.0); MCV 98.1 FL (86-99); PLATELET COUNT 206 K/uL (156-360); RBC DIS.WIDTH-CV 15.2 % (11.8-14.6); RBC DIS.WIDTH-SD 54.4 % (39-53); WHITE BLOOD COUNT 8.7 K/uL (4.1-10.2)
[2017-11-10 06:37] LABS: CHLORIDE 104 MEQ/L (99-109); CREATININE 1.5 MG/DL (0.6-1.3); GFR ESTIMATE (CALCULATED) 48 mL/min/ (58.99-99999); GLUCOSE 85 mg/dL (70-99); SODIUM 141 MEQ/L (136-147); UREA NITROGEN (BUN) 25 mg/dL (9-23)
[2017-11-10 06:45] VITALS: BP 109/59
[2017-11-10 07:08] LABS: ATYPICAL LYMPHOCYTE 5.1 %; BAND NEUTROPHILS 0.9 % (0-8.0); EOSINOPHIL ABS CT 0.1; EOSINOPHILS 0.8 % (0-5.0); LYMPHOCYTES 10.3 % (15.0-45.0); MONOCYTES 3.4 % (0-9.0); PLAT.SUFFICIENCY ADEQUATE; SEG.NEUTROPHILS 79.5 % (46.0-76.0)
[2017-11-10 15:23] VITALS: BP 110/57
[2017-11-10 23:17] VITALS: BP 120/60
[2017-11-11 07:21] VITALS: BP 114/68
[2017-11-11] MEDS ORDERED: VANCOMYCIN HCL1 GM IV (15:10)
[2017-11-11] MEDS ORDERED: PREDNISONE5 MG PO (15:13)
[2017-11-11] MEDS ORDERED: LOVENOX40 MG/0.4 SC (15:14)
[2017-11-11] MEDS ORDERED: DOXYCYCLINE HY100 M3 PO (15:32)
[2017-11-11 15:40] VITALS: BP 107/58
== END 2017-11-11 20:55 | DRG 593 ==
LOC: EME 14:56 → 5EAST 19:22 → EDOF 19:22 → ENRESERV 19:27 → 5EAST 21:15
PROVIDERS: Emergency Medicine; Family Medicine Sports Medicine
DX: L89.320 Pressure ulcer of left buttock, unstageable (principal); L89.310 Pressure ulcer of right buttock, unstageable; B95.62 Methicillin resistant Staphylococcus aureus infection as the cause of diseases classified elsewhere; I13.0 Hypertensive heart and chronic kidney disease with heart failure and stage 1 through stage 4 chronic kidney disease, or unspecified chronic kidney disease; I50.9 Heart failure, unspecified; N18.3 Chronic kidney disease, stage 3 (moderate); E11.22 Type 2 diabetes mellitus with diabetic chronic kidney disease; I25.10 Atherosclerotic heart disease of native coronary artery without angina pectoris; E86.0 Dehydration; E87.2 Acidosis; D64.9 Anemia, unspecified; E03.9 Hypothyroidism, unspecified; E78.5 Hyperlipidemia, unspecified; J44.9 Chronic obstructive pulmonary disease, unspecified; E66.01 Morbid (severe) obesity due to excess calories; Z68.35 Body mass index [BMI] 35.0-35.9, adult; K21.9 Gastro-esophageal reflux disease without esophagitis; K59.00 Constipation, unspecified; M54.5 Low back pain; R26.2 Difficulty in walking, not elsewhere classified; Z74.01 Bed confinement status; Z85.21 Personal history of malignant neoplasm of larynx; Z93.0 Tracheostomy status; Z87.891 Personal history of nicotine dependence; Z79.84 Long term (current) use of oral hypoglycemic drugs
CPT/HCPCS: 31720; 71046; 74176; 80048; 80053; 80202; 81003; 82948; 83605; 84484; 85025; 85027; 87040; 87070; 87075; 87076; 87077; 87147; 87185; 87186; 87205; 93005; 94640; 94640 76; 94760; 94799; 97530 GO; 97530 GP; 99202; 99281; 99285; A6260; J0692; J0696; J1650; J1815; J3370; J7040; J7120; J7512